=== PATIENT | male | born 1950 | race Caucasian/White ===

== ENCOUNTER 2018-06-25 16:23 | Inpatient (IN) | payer BC, OTHER ==
[~2018-06-25] VITALS: Ht 172.7 cm; Wt 85.0 kg
[2018-06-25 16:28] VITALS: Ht 172.7 cm; Wt 85.0 kg
[2018-06-25 17:22] LABS: BASOPHIL % 0.4 % (0-2); PLATELET COUNT 261 x10^3mcL (130-400); RED CELL DISTRIBUTION WIDTH 13.6 % (11.5-14.5)
[2018-06-25 18:40] LABS: microscopic required? NO
[2018-06-25 18:56] LABS: CALCIUM 8.6 mg/dL (8.5-10.1); CARBON DIOXIDE 29.8 mmol/L (21-32); CHLORIDE SERUM 105 mmol/L (98-107); CREATININE SERUM 1.3 mg/dL (0.7-1.3); GFR1 59 mL/min; GLUCOSE SERUM 85 mg/dL (74-106); POTASSIUM SERUM 3.4 mmol/L (3.5-5.1); SODIUM SERUM 143 mmol/L (136-145)
[2018-06-25 18:58] LABS: urine erythrocyte NEGATIVE (NEGATIVE)
[2018-06-25 19:00] LABS: ALBUMIN 3.3 g/dL (3.4-5.0); ALKALINE PHOSPHATASE 75 U/L (46-116); ALT/SGPT 30 U/L (16-63); AST/SGOT 15 U/L (15-37); BILIRUBIN TOTAL 0.5 mg/dL (0.20-1.00); CHOLESTEROL 130 mg/dL (<200); TOTAL PROTEIN, SERUM 6.9 g/dL (6.4-8.2)
[2018-06-25 19:06] LABS: AMPHETAMINE QUAL UR NONE DETECTED (See below)
[2018-06-25] MEDS ORDERED: BACLOFEN20 MG (19:26)
[2018-06-25] MEDS ORDERED: SYNTHROID0.05 MG (19:26)
[2018-06-25] MEDS ORDERED: MORPHINE PUMP (19:26)
[2018-06-25 19:49] LABS: T3 TOTAL 0.97 ng/mL
[2018-06-25 19:50] LABS: MAGNESIUM 1.6 mg/dL (1.8-2.4); PHOSPHOROUS 2.8 mg/dL (2.5-4.9)
[2018-06-25 20:01] LABS: FREE T4 1.24 ng/dL (0.76-1.46); FREE THYROXINE INDEX 3.1 ug/dL (1.4-4.5); T4(THYROXINE) 8.4 ug/dL (4.7-13.3)
[2018-06-25 20:36] VITALS: BP 140/75
[2018-06-26 06:33] LABS: BASOPHIL % 0.3 % (0-2); PLATELET COUNT 206 x10^3mcL (130-400); RED CELL DISTRIBUTION WIDTH 13.8 % (11.5-14.5)
[2018-06-26 06:55] LABS: CALCIUM 8.7 mg/dL (8.5-10.1); CARBON DIOXIDE 30.5 mmol/L (21-32); CHLORIDE SERUM 107 mmol/L (98-107); CREATININE SERUM 1.2 mg/dL (0.7-1.3); GFR1 > 60 mL/min; GLUCOSE SERUM 122 mg/dL (74-106); MAGNESIUM 1.7 mg/dL (1.8-2.4); PHOSPHOROUS 3.8 mg/dL (2.5-4.9); POTASSIUM SERUM 3.6 mmol/L (3.5-5.1); SODIUM SERUM 142 mmol/L (136-145)
[2018-06-26 09:32] VITALS: BP 118/59
[2018-06-26 12:09] VITALS: BP 130/71
[2018-06-26 14:08] VITALS: BP 130/71
== END 2018-06-26 14:40 | disposition home or self-care (01) | DRG 73 ==
LOC: ED 16:23 → DU 18:54
PROVIDERS: Emergency Medicine; Family Medicine
DX: G90.9 Disorder of the autonomic nervous system, unspecified (principal); G92 Toxic encephalopathy; E44.1 Mild protein-calorie malnutrition; E87.6 Hypokalemia; E83.42 Hypomagnesemia; D64.9 Anemia, unspecified; F12.10 Cannabis abuse, uncomplicated; G89.29 Other chronic pain; E03.9 Hypothyroidism, unspecified; T40.2X5A Adverse effect of other opioids, initial encounter; Z60.2 Problems related to living alone; F11.10 Opioid abuse, uncomplicated; Z88.0 Allergy status to penicillin; Z88.2 Allergy status to sulfonamides; Z79.899 Other long term (current) drug therapy; Z79.1 Long term (current) use of non-steroidal anti-inflammatories (NSAID); Y92.89 Other specified places as the place of occurrence of the external cause; Z68.28 Body mass index [BMI] 28.0-28.9, adult
CPT/HCPCS: 83880; 84439; G0480; J2270; J2310; J7030; Q0092